=== PATIENT | male | born 1995 | race Caucasian/White ===

== ENCOUNTER 2017-09-23 16:58 | Emergency (ER) | payer OTHER ==
[~2017-09-23] VITALS: Ht 188 cm; Wt 93.9 kg
[~2017-09-23 16:58] MED LIST: AMOXICILLIN500 M3 PO
--- NOTE | 2017-09-23 17:48 | ED ANKLE/FOOT INJURY COMPLAINT ---
History of Present Illness General Chief Complaint: Foot or Ankle Injury Stated Complaint: RT ANKLE INJURY,"I FELT A POP" Source: patient, old records Exam Limitations: no limitations Vital Signs & Intake/Output Vital Signs & Intake/Output Vital Signs Date Time Temp Pulse Resp B/P B/P Pulse O2 O2 Flow FiO2 Mean Ox Delivery Rate 09/23 1830 97.0 88 20 126/86 98 Room Air 09/23 1704 97.9 110 18 154/82 98 Room Air Room Air Allergies Coded Allergies: NO KNOWN ALLERGIES (12/22/14) Reconcile Medications No Known Home Medications Triage Note: PT TO ED WITH C/O RIGHT ANKLE PAIN "HEARD A POP" WHILE PLAYING BASKETBALL APPROX 45 MINUTES AGO. Triage Nurses Notes Reviewed? yes Occurred: just prior to arrival Duration: hour(s): (1), constant Timing: single episode today Severity: moderate Severity Numbers: 6 Pain/Injury Location: Right: Ankle. Method of Injury: sports injury Modifying Factors: Worsens With: movement. Associated Symptoms: none HPI: 22-year-old male resents to ER for evaluation complain of right ankle pain proximal one hour ago felt a pop while playing basketball. Pain is worse with weightbearing. He denies any knee hip or foot pain. No modifying factors or associated symptoms otherwise. He took Tylenol prior to arrival for the pain. (Aileen Jasso) Past History Travel History Traveled to [place] past 21 day No Medical History Any Pertinent Medical History? 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 No (Aileen Jasso) Review of Systems Review of Systems Constitutional: Reports: see HPI. Comments Review of systems: See HPI, All other systems negative. Constitutional, no chills no fever HEENT: no sore throat no congestion Cardiovascular: No chest pain , no palpitation Skin: no rashes, no change in skin Respiratory: No dyspnea no cough no sputum GI: No nausea no vomiting, Muscle skeletal: see hpi Neurologic: , no headache Heme/endocrine: No bruising (Aileen Jasso) Physical Exam Physical Exam General Appearance: well developed/nourished, no apparent distress, alert, awake , comfortable Leg/Knee/Thigh Left: normal range of motion Comments: Well-developed well-nourished patient in no apparent distress. HEENT: Atraumatic, extraocular motion intact Neck: Supple, FROM Back: FROM Respiratory: No respiratory distress. Patient speaking in full complete sentences. upper Extremities: full range of motion Hip/Pelvis: Atraumatic/Stable. FROM. Knee: Atraumatic/stable. FROM. No joint swelling, no effusion. No laxity. No pain with ROM Leg: Atraumatic. Nontender. No edema, 5 out of 5 strength in the lower extremity, normal dorsiflexion of great toe bilaterally, gross sensation is intact, patellar tendon reflex 2+ bilaterally. Ankle/Foot: Ankle with moderate tenderness laterally over the lateral ligaments. No bony tenderness. No medial tenderness. Range of motion is near full but somewhat limited due to pain. No instability is noted. Skin is intact, No swelling, No ecchymosis noted. The foot is neurovascularly intact with sensation and motor grossly intact. There is no foot tenderness or fifth metatarsal tenderness. Able to move all toes. Palpable and intact achilles tendon. There is no proximal tib/fib tenderness Pulses: Normal/equal DP/PT pulses bilaterally. Brisk cap refill Neuro: awake, alert, and oriented to person, place and time. There were no obvious focal neurologic abnormalities. Skin: Warm & dry;No appreciable rash on exposed skin Psych: Mood affect normal, normal memory normal judgment. (Aileen Jasso) Progress Differential Diagnosis: fracture, dislocation, sprain, contusion Plan of Care: Orders Procedure Date/time Status [id number], RIGHT 09/23 1708 Active XRY-ANKLE 3 OR MORE VIEWS R 09/23 1708 Active X-rays ordered from triage I discussed with the patient his x-ray results Ernie wrap applied he has crutches at home I advised rice Tylenol Motrin and close follow up with orthopedist. He is comfortable with plan cleared for discharge Diagnostic Imaging: Viewed by Me: Radiology Read. Discussed w/RAD: Radiology Read. Radiology Impression: PATIENT: AILEEN KWOK PRESENT AGE: 22 PATIENT ACCOUNT NO: [id number] : 96 LOCATION: [facility] ORDERING PHYSICIAN: Yudith MENA SERVICE DATE: 09/23/17 EXAM TYPE: RAD - XRY-ANKLE 3 OR MORE VIEWS R; [id number], RIGHT EXAMINATIONS: RIGHT ANKLE 3 VIEWS AND RIGHT TIB/FIB 2 VIEWS CLINICAL INFORMATION: Pain. COMPARISON: None. TECHNIQUE: AP, lateral, oblique views of the right ankle were obtained. AP and lateral views of the right tib-fib are provided. FINDINGS: There are no fractures or dislocations. There is soft tissue swelling overlying the lateral malleolus. No ankle joint effusion is identified. IMPRESSION: Soft tissue swelling without fracture or joint effusion. DICTATED BY: Eddy Baker MD DATE /TIME DICTATED:09/23/171809 WEB CONTENT EDITOR:CLAUDIO DATE/TIME TRANSCRIBED: 09/23/171809 CONFIDENTIAL, DO NOT COPY WITHOUT APPROPRIATE AUTHORIZATION. < Electronically signed in Other Vendor System> SIGNED BY: Eddy Baker MD 09/23/171816 (Aileen Jasso) Departure Departure Time of Disposition: 1822 Disposition: HOME OR SELF CARE Condition: Stable Clinical Impression Primary Impression: Ankle sprain Referrals: Janis HUERTA,Faisal Mejía MD,[place] (PCP/Family) Additional Instructions: rest, ice, ernie wrap, tylenol or motrin for pain. keep leg elevated. crutches when ambulatory. follow up with your pmd or orthopedist dr cardozo next wqek if symptoms persist. Departure Forms: Customer Survey General Discharge Information Prescriptions: Current Visit Scripts No Known Home Medications (Aileen Jasso) PA/FURNACE INSTALLER HELPER Co-Sign Statement Statement: ED Attending supervision documentation- [] I saw and evaluated the patient. I have also reviewed all the pertinent lab results and diagnostic results. I agree with the findings and the plan of care as documented in the PA's/FURNACE INSTALLER HELPER's documentation. [X] I have reviewed the ED Record and agree with the PA's/FURNACE INSTALLER HELPER's documentation. [] Additions or exceptions (if any) to the PAs/FURNACE INSTALLER HELPER's note and plan are summarized below: [] (Janel HUERTA,Miguel Holman)
--- NOTE | 2017-09-23 18:17 | RADIOLOGY REPORT ---
EXAMINATIONS: RIGHT ANKLE 3 VIEWS AND RIGHT TIB/FIB 2 VIEWS CLINICAL INFORMATION: Pain. COMPARISON: None. TECHNIQUE: AP, lateral, oblique views of the right ankle were obtained. AP and lateral views of the right tib-fib are provided. FINDINGS: There are no fractures or dislocations. There is soft tissue swelling overlying the lateral malleolus. No ankle joint effusion is identified. IMPRESSION: Soft tissue swelling without fracture or joint effusion.
[2017-09-23 18:30] VITALS: BP 126/86
== END 2017-09-23 18:30 ==
LOC: ERH 16:58
DX: S93.401A Sprain of unspecified ligament of right ankle, initial encounter (principal); X58.XXXA Exposure to other specified factors, initial encounter; Y93.67 Activity, basketball; Y92.9 Unspecified place or not applicable
CPT/HCPCS: 73590-RT; 73610-RT